=== PATIENT | female | born 1980 | race Caucasian/White ===

== ENCOUNTER 2017-06-29 13:23 | Emergency (ER) | payer OTHER ==
[2017-06-29 13:40] VITALS: TEMP 98.8
[2017-06-29] MEDS ORDERED: Morphine 4 MG/ML VIAL IV ONE (14:55)
--- NOTE | 2017-06-29 14:56 | C.PDOC ---
Chief Complaint (Nursing): Abdominal Pain Past Medical History Vital Signs: Last Vital Signs Temp 98.8 F 06/29/17 13:39 Pulse 96 H 06/29/17 13:39 Resp 20 06/29/17 13:39 BP 104/71 06/29/17 13:39 Pulse Ox 100 06/29/17 13:39 - Social History Hx Alcohol Use: No Hx Substance Use: No - Immunization History Hx Tetanus Toxoid Vaccination: No Hx Influenza Vaccination: No Hx Pneumococcal Vaccination: No ED Course And Treatment O2 Sat by Pulse Oximetry: 100 Disposition - Disposition
--- NOTE | 2017-06-29 14:58 | C.PDOC ---
History Of Present Illness 37 y/o female presents to ED for evaluation of RUQ abdominal pain radiating to right side of her back for the last 2 days. Pt reports associated nausea and vomiting. Notes that pain developed after eating fatty fried food at 7:00pm 2 days ago. Denies having similar symptoms in the past. No fever, chills, urinary symptoms, or any other associated symptoms at this time. Chief Complaint (Nursing): Abdominal Pain History Per: Patient History/Exam Limitations: no limitations Onset/Duration Of Symptoms: Days (2) Current Symptoms Are (Timing): Still Present Location Of Pain/Discomfort: RUQ Radiation Of Pain To:: Back Quality Of Discomfort: "Pain" Associated Symptoms: Nausea, Vomiting, Back Pain. denies: Fever, Chills, Loss Of Appetite, Chest Pain, Constipation, Urinary Symptoms Exacerbating Factors: Food Alleviating Factors: None Recent travel outside of the [place]: No Additional History Per: Patient Abnormal Vaginal Bleeding: No Past Medical History Reviewed: Historical Data, Nursing Documentation, Vital Signs Vital Signs: Last Vital Signs Temp 98.8 F 06/29/17 13:39 Pulse 96 H 06/29/17 13:39 Resp 20 06/29/17 13:39 BP 104/71 06/29/17 13:39 Pulse Ox 100 06/29/17 16:14 - Medical History PMH: Diabetes Family History: States: Unknown Family Hx - Social History Hx Alcohol Use: No Hx Substance Use: No - Immunization History Hx Tetanus Toxoid Vaccination: No Hx Influenza Vaccination: No Hx Pneumococcal Vaccination: No Review Of Systems Except As Marked, All Systems Reviewed And Found Negative. Constitutional: Negative for: Fever, Chills Cardiovascular: Negative for: Chest Pain, Palpitations, Light Headedness Respiratory: Negative for: Cough, Shortness of Breath Gastrointestinal: Positive for: Nausea, Vomiting, Abdominal Pain (RUQ). Negative for: Diarrhea, Constipation Genitourinary: Negative for: Dysuria, Frequency, Hematuria Musculoskeletal: Positive for: Back Pain (right side). Negative for: Neck Pain Neurological: Negative for: Weakness, Numbness, Headache, Dizziness Physical Exam - Physical Exam Appears: Non-toxic, No Acute Distress Skin: Normal Color, Warm, Dry Head: Atraumatic, Normacephalic Eye(s): bilateral: Normal Inspection, PERRL, EOMI, Other (anicteric) Nose: Normal Oral Mucosa: Moist Neck: Normal ROM, Supple Lymphatic: No Adenopathy Chest: Symmetrical, No Deformity Cardiovascular: Rhythm Regular (RRR), No Murmur Respiratory: Normal Breath Sounds, No Rales, No Rhonchi, No Wheezing Gastrointestinal/Abdominal: Bowel Sounds (active), Soft, Tenderness (RUQ), No Distention, Guarding (voluntary), No Rebound Back: No CVA Tenderness, No Vertebral Tenderness Extremity: Normal ROM, No Pedal Edema, Capillary Refill (<2 sec.), No Deformity Pulses: Left Radial: Normal, Right Radial: Normal Neurological/Psych: Oriented x3, Normal Speech, Normal Cognition ED Course And Treatment - Laboratory Results Result Diagrams: 06/29/17 15:09 06/29/17 15:09 Lab Interpretation: Normal Urine POC: Negative O2 Sat by Pulse Oximetry: 100 (RA) Pulse Ox Interpretation: Normal - CT Scan/US ruq Other Rad Studies (CT/US): Read By Radiologist CT/US Interpretation: c/w cholelithiasis without cholecystitis Progress Note: Pt is currently pain free,stable for d/c Medical Decision Making Medical Decision Making: Blood work, UA, abdomen ultrasound ordered and reviewed. Patient was given Morphine IV. Pt with biliary colic.Now pain free.Will discharge for f/u with gen surgery Disposition - Disposition Referrals: Chito Cross MD [Staff Provider] - Disposition: HOME/ ROUTINE Disposition Time: 16:08 Condition: GOOD Additional Instructions: return to ED for fever,intractable pain or intractable vomiting Prescriptions: Acetaminophen/Hydrocodone Bi [Vicodin 300 mg-5 mg] 1 tab PO QID PRN #12 tab PRN Reason: Pain, Mild (1-3) Forms: Gen Discharge Inst Sudanese, [employer] (Sudanese) - Clinical Impression Clinical Impression: Biliary colic - Scribe Statement The provider has reviewed the documentation as recorded by the Roseibmaegan Lester All medical record entries made by the Roseibmaegan were at my direction and personally dictated by me. I have reviewed the chart and agree that the record accurately reflects my personal performance of the history, physical exam, medical decision making, and the department course for this patient. I have also personally directed, reviewed, and agree with the discharge instructions and disposition.
[2017-06-29 15:12] LABS: BASO % 0.5 % (0.0-2.0); EOS # 0.1 K/uL (0.0-0.7); HEMATOCRIT 40.5 % (34.0-47.0); LYMPH # 1.5 K/uL (1.0-4.3); LYMPH % 19.9 % (20.0-40.0); MEAN CELL VOLUME 80.9 fL (81.0-99.0); MEAN CORPUSCULAR HGB CONC 33.4 g/dL (33.0-37.0); MONO # 0.3 K/uL (0.0-0.8); MONO % 4.5 % (0.0-10.0); NRBC % 0.1 % (0.0-2.0); RED CELL DISTRIBUTION WIDTH 13.9 % (11.5-14.5); WHITE BLOOD COUNT 7.5 K/uL (4.8-10.8)
[2017-06-29 15:21] LABS: CHLORIDE 96 mmol/L (98-107); SODIUM 133 mmol/L (132-148)
[2017-06-29 15:23] LABS: AST/SGOT 14 U/L (14-36); BILIRUBIN,TOTAL 0.5 mg/dL (0.2-1.3); CARBON DIOXIDE 27 mmol/L (22-30); GFR AFRICAN-AMERICAN > 60; RBC URINE < 1 /hpf (0-3); URINE BACTERIA RARE (<OCC); URINE BILIRUBIN NEGATIVE (NEGATIVE); URINE BLOOD NEGATIVE (NEGATIVE); URINE COLOR Straw (YELLOW); URINE GLUCOSE (UA) 3+ mg/dL (Normal); URINE KETONE NEGATIVE (NEGATIVE); URINE LEUKOCYTE ESTERASE NEG Leu/uL (Negative); URINE PROTEIN NEGATIVE (NEGATIVE); URINE UROBILINOGEN NORMAL mg/dL (0.2-1.0); WBC URINE 1 /hpf (0-5)
[2017-06-29 15:24] LABS: ALKALINE PHOSPHATASE 90 U/L (38-126); ALT/SGPT 27 U/L (9-52); BLOOD UREA NITROGEN 11 mg/dL (7-17); CALCIUM 9.3 mg/dl (8.6-10.4); GLUCOSE,RANDOM 309 mg/dL (65-105); TOTAL PROTEIN 8.4 g/dL (6.3-8.3)
--- NOTE | 2017-06-29 15:49 | US ---
HISTORY: abd pain COMPARISON: None. TECHNIQUE: Sonographic evaluation of the right upper quadrant of the abdomen. FINDINGS: LIVER: Measures 14 point cm in length. Normal echogenicity of the liver parenchyma. No mass. No intrahepatic bile duct dilatation. GALLBLADDER: Gallbladder appears mildly contracted with extensive cholelithiasis noted within the lumen shadowing posteriorly. No pericholecystic fluid collection is evident however the wall measures 3.4 mm thickness yet there was no sonographic Mcdonough's sign reported. COMMON BILE DUCT: Measures 3.6 mm. No stones. No dilatation. PANCREAS: The pancreas is not clearly identified due to extensive overlying bowel and stomach gas PE RIGHT KIDNEY: Measures 9.9 a cm in length. Normal echogenicity. No calculus, mass, or hydronephrosis. AORTA: No aneurysmal dilatation. IVC: Unremarkable. OTHER FINDINGS: None . IMPRESSION: Extensive cholelithiasis identified within the gallbladder lumen which is only mildly distended. Mural thickening is seen rate the gallbladder potentially but with no pericholecystic fluid collection. Evaluation the gallbladder wall is limited by lack of adequate distention. No ultrasound evidence of biliary tree dilatation. Clinically correlate nevertheless for potential cholecystitis though there is a negative sonographic Mcdonough sign.
[2017-06-29 16:41] VITALS: BP 132/78; PULSE 78; RESP 16; O2SAT 98
== END 2017-06-29 16:40 | disposition home or self-care (01) ==
LOC: C.ER 13:23
DX: K80.50 Calculus of bile duct without cholangitis or cholecystitis without obstruction (principal); E11.9 Type 2 diabetes mellitus without complications
CPT/HCPCS: 76705; 80053; 81001; 83690; 84703; 85025; 99284; J2270

== ENCOUNTER 2017-09-24 11:30 | Emergency (ER) | payer OTHER ==
--- NOTE | 2017-09-24 13:11 | C.PDOC ---
History Of Present Illness 37 year old male with a past medical history of diabetes presents to the ED complaining of left sided abdominal pain x2 days. The patient reports that she was seen in the ED 2 months ago and was diagnosed with gallstones and given medication for her symptoms. She reports that her symptoms returned 2 days ago and the pain she is feeling today has been the worst. Patient does note some vomiting and dysuria. Denies diarrhea, dizziness. No PMD Last menstrual period: September 10 Time Seen by Provider: 09/24/17 12:04 Chief Complaint (Nursing): Abdominal Pain History Per: Patient History/Exam Limitations: no limitations Onset/Duration Of Symptoms: Days Current Symptoms Are (Timing): Still Present Radiation Of Pain To:: None Associated Symptoms: Vomiting, Urinary Symptoms (dysuria). denies: Fever, Chills, Nausea, Diarrhea Exacerbating Factors: None Alleviating Factors: None Recent travel outside of the [place]: No Abnormal Vaginal Bleeding: No Last Menstral Period: September 10 Past Medical History Reviewed: Historical Data, Nursing Documentation, Vital Signs Vital Signs: Last Vital Signs Temp 98.0 F 09/24/17 14:46 Pulse 67 09/24/17 14:46 Resp 16 09/24/17 14:46 BP 100/64 09/24/17 14:46 Pulse Ox 99 09/24/17 14:55 - Medical History PMH: Diabetes Family History: States: Unknown Family Hx - Social History Hx Tobacco Use: Yes (Light Smoker < 10 Cigarettes Daily; 9 years) Hx Alcohol Use: No Hx Substance Use: No - Immunization History Hx Tetanus Toxoid Vaccination: No Hx Influenza Vaccination: No Hx Pneumococcal Vaccination: No Review Of Systems Except As Marked, All Systems Reviewed And Found Negative. Gastrointestinal: Positive for: Vomiting, Abdominal Pain. Negative for: Nausea , Diarrhea Genitourinary: Positive for: Dysuria Neurological: Negative for: Dizziness Physical Exam - Physical Exam Appears: Non-toxic, No Acute Distress Skin: Normal Color, Warm, Dry, No Rash Head: Atraumatic, Normacephalic, No Tenderness Eye(s): bilateral: Normal Inspection, PERRL, EOMI Ear(s): Bilateral: Normal Nose: Normal Oral Mucosa: Moist, No Drooling Tongue: Normal Appearing Lips: Normal Appearing Teeth: Normal Dentition Throat: Normal Neck: Normal, Normal ROM, Supple Chest: Symmetrical, No Deformity, No Tenderness Cardiovascular: Rhythm Regular, No Edema, No Murmur Respiratory: Normal Breath Sounds, No Rales, No Rhonchi, No Wheezing Gastrointestinal/Abdominal: Bowel Sounds, Soft, Tenderness (RUQ tenderness), No Guarding, No Rebound, Other ((-) Mcdonough's sign) Back: Normal Inspection, No CVA Tenderness, No Muscle Spasm Extremity: Normal ROM, No Tenderness, No Deformity, No Swelling Extremity: Bilateral: Atraumatic Neurological/Psych: Oriented x3, Normal Speech, Normal Motor ED Course And Treatment - Laboratory Results Result Diagrams: 09/24/17 13:06 09/24/17 13:06 O2 Sat by Pulse Oximetry: 99 (RA) Pulse Ox Interpretation: Normal - CT Scan/US US - Abdomen Other Rad Studies (CT/US): Read By Radiologist, Radiology Report Reviewed CT/US Interpretation: HISTORY: Abdominal pain. COMPARISON: None. TECHNIQUE: Grayscale imaging was performed. FINDINGS: LIVER: Measures 13.5 cm in length. There is mild diffuse increased echogenicity of the liver parenchyma. No mass. No intrahepatic bile duct dilatation. GALLBLADDER: There are multiple gallstones. No gallbladder wall thickening or pericholecystic fluid. The sonographic Mcdonough's sign is negative. COMMON BILE DUCT: Measures 2.5 mm. No stones. No dilatation. PANCREAS: Unremarkable as visualized. No mass. No ductal dilatation. RIGHT KIDNEY: Measures 9.6 cm in length. Normal echogenicity. No calculus, mass, or hydronephrosis. AORTA: No aneurysmal dilatation. IVC: Unremarkable. OTHER FINDINGS: None . IMPRESSION: Cholelithiasis. Fatty liver. Medical Decision Making Medical Decision Makin Initial Impression 37 y/o female presenting with Biliary Colic Initial Plan: * CMP * Lipase * CBC * Pepcid 20mg IVP * Toradol 30mg IVP * Zofran 4mg IVP * Upreg * Urinalysis * US Abdomen Limited * Reevaluation 1445 Labs reviewed show no clinically significant abnormalities.. US performed significant for gallstones. Patient will be discharged home with prescription for pain medication and the number for the clinic and advised to call and make arrangement to see a surgeon.Strongly advised to call today. Patient also requested medication for her diabetes. Diagnosis: Biliary Colic and Hyperglycemia Condition: Good Follow up: Surgeon Disposition Counseled Patient/Family Regarding: Studies Performed, Diagnosis, Need For Followup, Rx Given - Disposition Referrals: [facility] [Outside] Disposition: HOME/ ROUTINE Disposition Time: 14:51 Condition: GOOD Additional Instructions: follow up with medical clinic in 2 days call to make an appointment take medication as prescribed return to hospital if symptoms worsens or progress Prescriptions: Famotidine [Pepcid] 20 mg PO BID #20 tab metFORMIN [glucOPHAGE] 850 mg PO BID #50 tab Ondansetron ODT [Zofran ODT] 4 mg PO TID PRN #12 odt PRN Reason: Nausea/Vomiting traMADol [Ultram] 50 mg PO TID PRN #12 tab PRN Reason: Pain, Moderate (4-7) Instructions: Biliary Colic (ED), Diabetic Hyperglycemia (ED) Forms: Gen Discharge Inst Namibian, [employer] (Namibian) Print Language: KOREAN - Clinical Impression Clinical Impression: Biliary colic, Hyperglycemia - Scribe Statement Christina Dale All medical record entries made by the Scribe were at my direction and personally dictated by me. I have reviewed the chart and agree that the record accurately reflects my personal performance of the history, physical exam, medical decision making, and the department course for this patient. I have also personally directed, reviewed, and agree with the discharge instructions and disposition.
[2017-09-24 13:18] LABS: BASO % 0.4 % (0.0-2.0); EOS % 0.7 % (0.0-4.0); HEMOGLOBIN 13.9 g/dL (11.0-16.0); LYMPH # 1.3 K/uL (1.0-4.3); LYMPH % 19.5 % (20.0-40.0); MEAN CELL VOLUME 82.3 fL (81.0-99.0); MEAN CORPUSCULAR HEMOGLOBIN 27.7 pg (27.0-31.0); MEAN CORPUSCULAR HGB CONC 33.6 g/dL (33.0-37.0); MEAN PLATELET VOLUME 9.4 fL (7.2-11.7); MONO # 0.3 K/uL (0.0-0.8); MONO % 4.2 % (0.0-10.0); NEUT # 5.2 K/uL (1.8-7.0); NEUT % 75.2 % (50.0-75.0); NRBC % 0.2 % (0.0-2.0); RBC 5.03 Mil/uL (3.80-5.20); RED CELL DISTRIBUTION WIDTH 14.2 % (11.5-14.5); WHITE BLOOD COUNT 6.9 K/uL (4.8-10.8)
[2017-09-24 13:21] LABS: SQUAMOUS EPITHIAL 3 /hpf (0-5); URINE BACTERIA MOD (<OCC); URINE BILIRUBIN NEGATIVE (NEGATIVE); URINE BLOOD NEGATIVE (NEGATIVE); URINE CLARITY Clear (Clear); URINE COLOR Straw (YELLOW); URINE GLUCOSE (UA) 3+ mg/dL (Normal); URINE LEUKOCYTE ESTERASE 1+ Leu/uL (Negative); URINE NITRATE NEGATIVE (NEGATIVE); URINE PROTEIN NEGATIVE (NEGATIVE); URINE UROBILINOGEN NORMAL mg/dL (0.2-1.0)
[2017-09-24 13:29] LABS: CALCIUM 8.5 mg/dl (8.6-10.4); GFR AFRICAN-AMERICAN > 60; GFR NON-AFRICAN AMERICAN > 60; LIPASE 37 U/L (23-300)
[2017-09-24 13:31] LABS: ALT/SGPT 17 U/L (9-52); AST/SGOT 32 U/L (14-36); BLOOD UREA NITROGEN 11 mg/dL (7-17)
[2017-09-24] MEDS ORDERED: Sodium Chloride 0.9% 1,000 ML IV ONE (13:41)
--- NOTE | 2017-09-24 13:52 | US ---
HISTORY: Abdominal pain COMPARISON: None. TECHNIQUE: Grayscale imaging was performed. FINDINGS: LIVER: Measures 13.5 cm in length. There is mild diffuse increased echogenicity of the liver parenchyma. No mass. No intrahepatic bile duct dilatation. GALLBLADDER: There are multiple gallstones. No gallbladder wall thickening or pericholecystic fluid. The sonographic Mcdonough's sign is negative. COMMON BILE DUCT: Measures 2.5 mm. No stones. No dilatation. PANCREAS: Unremarkable as visualized. No mass. No ductal dilatation. RIGHT KIDNEY: Measures 9.6 cm in length. Normal echogenicity. No calculus, mass, or hydronephrosis. AORTA: No aneurysmal dilatation. IVC: Unremarkable. OTHER FINDINGS: None . IMPRESSION: Cholelithiasis. Fatty liver.
[2017-09-24 15:43] VITALS: BP 98/59; PULSE 74; RESP 18; TEMP 98.5; O2SAT 100
== END 2017-09-24 15:42 | disposition home or self-care (01) ==
LOC: C.ER 11:30
DX: E11.65 Type 2 diabetes mellitus with hyperglycemia (principal); K80.50 Calculus of bile duct without cholangitis or cholecystitis without obstruction
CPT/HCPCS: 76705; 80053; 81001; 83690; 85025; 96361; 96374; 96375; 99285; J1885; J2405; J7040

== ENCOUNTER 2018-01-27 01:44 | Emergency (ER) | payer OTHER ==
--- NOTE | 2018-01-27 02:02 | C.PDOC ---
History Of Present Illness 37 year old female with a history of gall-bladder disease presents to the emergency department with complaints of right upper quadrant abdominal pain since 11pm yesterday. Patient confirms nausea and vomiting. Time Seen by Provider: 01/27/18 02:02 Chief Complaint (Nursing): Abdominal Pain History Per: Patient History/Exam Limitations: no limitations Onset/Duration Of Symptoms: Hrs Current Symptoms Are (Timing): Still Present Location Of Pain/Discomfort: RUQ Radiation Of Pain To:: None Quality Of Discomfort: "Pain" Associated Symptoms: Nausea, Vomiting Past Medical History Reviewed: Historical Data, Nursing Documentation, Vital Signs Vital Signs: Last Vital Signs Temp 98.5 F 01/27/18 06:30 Pulse 79 01/27/18 06:30 Resp 16 01/27/18 06:30 BP 95/64 L 01/27/18 06:30 Pulse Ox 97 01/27/18 06:30 - Medical History PMH: Diabetes, Gall Bladder Disease Surgical History: No Surg Hx Family History: States: No Known Family Hx - Social History Hx Tobacco Use: Yes (Light Smoker < 10 Cigarettes Daily; 9 years) Hx Alcohol Use: No Hx Substance Use: No - Immunization History Hx Tetanus Toxoid Vaccination: No Hx Influenza Vaccination: No Hx Pneumococcal Vaccination: No Review Of Systems Gastrointestinal: Positive for: Nausea, Vomiting Physical Exam - Physical Exam Appears: Non-toxic, In Acute Distress (moderate discomfort) Skin: Warm, Dry Head: Atraumatic Eye(s): bilateral: Normal Inspection Oral Mucosa: Moist Neck: Trachea Midline, Supple Chest: Symmetrical Cardiovascular: Rhythm Regular Respiratory: No Rales, No Rhonchi, No Wheezing Gastrointestinal/Abdominal: Tenderness (RUQ), No Guarding, No Rebound Extremity: Bilateral: Atraumatic Pulses: Left Dorsalis Pedis: Normal, Right Dorsalis Pedis: Normal Neurological/Psych: Oriented x3 Gait: Steady ED Course And Treatment - Laboratory Results Result Diagrams: 01/27/18 02:44 01/27/18 02:44 O2 Sat by Pulse Oximetry: 97 Pulse Ox Interpretation: Normal Progress Note: Plan: CMP. Lipase. CBC. PTT. Prothrombin Time. Morphine 4mg IVP. NaCl IV Fluids. Zofran 4mg IVP. HCG. Urinalysis. 6:30 Pt still with ruq pain Disposition Counseled Patient/Family Regarding: Studies Performed, Diagnosis - Disposition Disposition Time: 02:02 Condition: FAIR Forms: Accompanied To ED By:, [employer] (Divehi) - Clinical Impression Clinical Impression: Abdominal pain, Biliary colic - Scribe Statement The provider has reviewed the documentation as recorded by the Scribe (Hao Sofia) Provider Attestation: All medical record entries made by the Scribe were at my direction and personally dictated by me. I have reviewed the chart and agree that the record accurately reflects my personal performance of the history, physical exam, medical decision making, and the department course for this patient. I have also personally directed, reviewed, and agree with the discharge instructions and disposition. Physician Patient Turnover Patient Signed Over To: Magdalene Walsh Handoff Comments: pending abdominal US a, surgical consult and dispostion
[2018-01-27] MEDS ORDERED: Sodium Chloride 0.9% 1,000 ML IV ONE ×3 (02:03→07:47)
[2018-01-27] MEDS ORDERED: Morphine 4 MG/ML VIAL ONE ×2 (02:19→07:46)
[2018-01-27 02:54] LABS: INR 1.1; PROTHROMBIN TIME 12.3 SECONDS (9.7-12.2)
[2018-01-27 03:02] LABS: BASO # 0.1 K/uL (0.0-0.2); BASO % 1.1 % (0.0-2.0); EOS # 0.2 K/uL (0.0-0.7); EOS % 2.9 % (0.0-4.0); HEMOGLOBIN 12.5 g/dL (11.0-16.0); LYMPH # 2.3 K/uL (1.0-4.3); LYMPH % 33.4 % (20.0-40.0); MEAN CELL VOLUME 82.9 fL (81.0-99.0); MEAN CORPUSCULAR HEMOGLOBIN 27.8 pg (27.0-31.0); MEAN CORPUSCULAR HGB CONC 33.5 g/dL (33.0-37.0); MONO # 0.4 K/uL (0.0-0.8); MONO % 5.4 % (0.0-10.0); NEUT % 57.2 % (50.0-75.0); NRBC % 0.1 % (0.0-2.0); RBC 4.5 Mil/uL (3.80-5.20); RED CELL DISTRIBUTION WIDTH 13.5 % (11.5-14.5)
[2018-01-27 03:08] LABS: ALB/GLOB RATIO 1.2 (1.0-2.1); ALBUMIN 3.5 g/dL (3.5-5.0); ALT/SGPT 12 U/L (9-52); AST/SGOT 17 U/L (14-36); BLOOD UREA NITROGEN 19 mg/dL (7-17); CALCIUM 8.7 mg/dl (8.6-10.4); GFR AFRICAN-AMERICAN > 60; GFR NON-AFRICAN AMERICAN > 60; LIPASE 88 U/L (23-300)
[2018-01-27] MEDS ORDERED: Sodium Chloride 0.9% 1,000 ML ONE ×2 (03:26→07:46)
[2018-01-27 03:30] LABS: SQUAMOUS EPITHIAL < 1 /hpf (0-5); URINE BILIRUBIN NEGATIVE (NEGATIVE); URINE BLOOD NEGATIVE (NEGATIVE); URINE CLARITY Clear (Clear); URINE COLOR Straw (YELLOW); URINE GLUCOSE (UA) 3+ mg/dL (Normal); URINE LEUKOCYTE ESTERASE NEG Leu/uL (Negative); URINE PROTEIN NEGATIVE (NEGATIVE); URINE UROBILINOGEN NORMAL mg/dL (0.2-1.0)
[2018-01-27 03:37] LABS: HCG,QUALITATIVE URINE NEGATIVE (NEGATIVE)
[2018-01-27] MEDS ORDERED: Iohexol 350mg/ml 100 ML ONE (04:19)
--- NOTE | 2018-01-27 06:08 | CT ---
EXAM: CT Abdomen and Pelvis With Intravenous Contrast CLINICAL HISTORY: 37 years old, female; Pain; Abdominal pain; Prior surgery; Surgery type: Gall stones; Additional info: Ruq pain, HX of gallstones TECHNIQUE: Axial computed tomography images of the abdomen and pelvis with intravenous contrast. All CT scans at this facility use one or more dose reduction techniques, viz.: automated exposure control; ma/kV adjustment per patient size (including targeted exams where dose is matched to indication; i.e. head); or iterative reconstruction technique. Coronal and sagittal reformatted images were created and reviewed. CONTRAST: 100 mL of administered intravenously. COMPARISON: No relevant prior studies available. FINDINGS: Limitations: Motion artifact - mild to moderate. Lung bases: 0.4 cm RIGHT middle lobe nodule. ABDOMEN: Liver: Minimal periportal edema. Gallbladder and bile ducts: Apparent minimal gallbladder wall thickening. Gallstones. No significant ductal dilation. Pancreas: No ductal dilation. No mass. Spleen: No splenomegaly. Adrenals: No mass. Kidneys and ureters: No mass. No hydronephrosis. Stomach and bowel: Apparent mild mural/fold thickening vs underdistention of several jejunal loops. No associated inflammatory stranding. Few mildly distended loops of small bowel, likely ileus. PELVIS: Appendix: Appendix: Normal caliber. No inflammation. Bladder: Unremarkable. Reproductive: 1.6 x 1.5 x 1.4 cm enhancing hypodensity with crenulated margins within LEFT ovary. 0.6 x 1.1 x 1.2 cm hypodensity along right vaginal vault, nonspecific. Clinical correlation is needed. ABDOMEN and PELVIS: Intraperitoneal space: Trace free fluid within pelvis. No free air. Bones/joints: Mild scoliosis. No acute fracture. Soft tissues: Laparotomy scar. Vasculature: Unremarkable. No aneurysm. Lymph nodes: No pathologically enlarged lymph nodes. IMPRESSION: 1. Cholelithiasis with apparent minimal gallbladder wall thickening. Recommend ultrasound. 2. Involuting or ruptured LEFT ovarian follicle/cyst. 3. Possible mild enteritis. Clinical correlation is needed. 4. Pulmonary nodule. For low-risk patients, no follow-up is necessary. For high-risk patients (smoking history or other known risk factors) an optional CT at 12 months could be performed. 5. Incidental/non-acute findings are described above.
[2018-01-27 07:43] VITALS: PULSE 65
--- NOTE | 2018-01-27 09:01 | US ---
HISTORY: ruq pain, gallstones COMPARISON: None. TECHNIQUE: Sonographic evaluation of the right upper quadrant of the abdomen. FINDINGS: LIVER: Measures 14.2 cm in length. Normal echogenicity of the liver parenchyma. No mass. No intrahepatic bile duct dilatation. GALLBLADDER: Cholelithiasis. Mural thickening up to 5 mm. No pericholecystic fluid. Negative sonographic Mcdonough sign. Equivocal findings for cholecystitis. COMMON BILE DUCT: Measures 4 mm. No stones. No dilatation. PANCREAS: Unremarkable as visualized. No mass. No ductal dilatation. RIGHT KIDNEY: Measures 10.2 cm in length. Normal echogenicity. No calculus, mass, or hydronephrosis. AORTA: No aneurysmal dilatation. IVC: Unremarkable. OTHER FINDINGS: None . IMPRESSION: Cholelithiasis with mural thickening of the gallbladder. Negative sonographic Mcdonough's sign. Equivocal findings for cholecystitis. The remainder the examination is unremarkable.
[2018-01-27 09:33] VITALS: BP 93/61; RESP 20; TEMP 98.1; O2SAT 98
== END 2018-01-27 09:36 | disposition home or self-care (01) ==
LOC: C.ER 01:44
DX: K80.50 Calculus of bile duct without cholangitis or cholecystitis without obstruction (principal); R10.9 Unspecified abdominal pain; E11.9 Type 2 diabetes mellitus without complications
CPT/HCPCS: 74177; 76705; 80053; 81001; 83690; 84703; 85025; 85610; 85730; 96361; 96374; 96375; 96376; 99285; J1885; J2270; J2405; J7040; Q9967